=== PATIENT | female | born 1985 ===

== ENCOUNTER 2017-10-18 16:45 | Emergency (ER) | payer BC, OTHER ==
[2017-10-18 16:46] VITALS: BMI 30.9
[2017-10-18 17:08] VITALS: BP 110/59; PULSE 71; RESP 18; TEMP 97.9; O2SAT 100
--- NOTE | 2017-10-18 17:31 | ED PDOC ---
HPI: General Adult Time Seen by Provider: 10/18/17 17:16 Chief Complaint (Nursing): Upper Extremity Problem/Injury Chief Complaint (Provider): Right elbow and knee pain, fall History Per: Patient History/Exam Limitations: no limitations Onset/Duration Of Symptoms: Days (x2) Current Symptoms Are (Timing): Still Present Additional Complaint(s): 32 year old female presents to the emergency department complaining of pain to the right knee and right elbow s/p rip and fall yesterday. Patient states she misplaced her footing while getting out of a truck and fell, sustaining abrasions to the right knee and elbow. She reports taking Motrin with some improvement, last dose was around 12PM noon. Patient is able to bend right elbow and right knee. She complains of difficulty walking secondary to the pain. PMD: Dr. Purcell Past Medical History Reviewed: Historical Data, Nursing Documentation, Vital Signs Vital Signs: Last Vital Signs Temp 97.9 F 10/18/17 17:03 Pulse 71 10/18/17 17:03 Resp 18 10/18/17 17:03 BP 110/59 L 10/18/17 17:03 Pulse Ox 100 10/18/17 17:38 - Medical History PMH: Anxiety, Back Problems - Surgical History Surgical History: Appendectomy, - Family History Family History: States: No Known Family Hx - Living Arrangements Living Arrangements: With Family - Social History Current smoker - smoking cessation education provided: No Alcohol: None Drugs: Denies - Immunization History Hx Tetanus Toxoid Vaccination: No (not sure of last booster) - Home Medications Home Medications: Ambulatory Orders Medication Instructions Recorded ALPRAZolam [Xanax] 0.25 mg PO Q12 PRN #10 tab 06/15/17 Ibuprofen [Motrin Tab] 800 mg PO Q8 PRN #20 tab 10/18/17 - Allergies Allergies/Adverse Reactions: Allergies Allergy/AdvReac Type Severity Reaction Status Date / Time No Known Allergies Allergy Verified 06/25/15 11:14 Review of Systems ROS Statement: Except As Marked, All Systems Reviewed And Found Negative Musculoskeletal: Positive for: Other (right elbow and knee inuries) Neurological: Positive for: Other (no head injury or LOC) Physical Exam - Reviewed Nursing Documentation Reviewed: Yes Vital Signs Reviewed: Yes - Physical Exam Appears: Positive for: Well, Non-toxic, No Acute Distress Head Exam: Positive for: ATRAUMATIC, NORMAL INSPECTION, NORMOCEPHALIC Skin: Positive for: Normal Color. Negative for: Rash Eye Exam: Positive for: Normal appearance Neck: Positive for: Normal, Painless ROM. Negative for: Pain On Movement Of Neck Back: Positive for: Normal Inspection Extremity: Positive for: Other (Abrasions noted to right elbow and right knee, with full ROM of both elbow and knee. No bony deformities noted) Neurologic/Psych: Positive for: Alert, Oriented, Gait (steady) - Laboratory Results Urine POC: Negative - ECG O2 Sat by Pulse Oximetry: 100 (RA) Pulse Ox Interpretation: Normal - Other Rad Right elbow x-ray X-Ray: Interpreted by Me, Viewed By Me X-Ray Interpretation: no fx, no dis right knee x-ray X-Ray: Interpreted by Me, Viewed By Me X-Ray Interpretation: no fx, no dis Medical Decision Making Medical Decision Makin32 year old with knee and elbow injuries Time: 17:27 Plan: Tetanus booster Motrin 600 mg PO Tylenol 650 mg PO Urine X-rays of right elbow and right knee Patient is aware of x-ray results, all questions answered. Wounds cleansed with normal saline and Betadine, bacitracin and bandages applied. Knee immobilizer applied to right leg. Crutches declined. Prescription for Motrin given along with orthopedic referral. Scribe Attestation: Documented by Safia Corral, acting as a scribe for Mackenzie Isaacs PA-C Provider Scribe Attestation: All medical record entries made by the Scribe were at my direction and personally dictated by me. I have reviewed the chart and agree that the record accurately reflects my personal performance of the history, physical exam, medical decision making, and the department course for this patient. I have also personally directed, reviewed, and agree with the discharge instructions and disposition. Procedures - Splinting Location: right knee Pre-Made Type: knee immobilizer Pre-Proc Neuro Vasc Exam: normal Post-Proc Neuro Vasc Exam: normal Disposition - Clinical Impression Clinical Impression: Elbow sprain, Knee sprain, Abrasions of multiple sites, Requires a booster tetanus - Patient ED Disposition Is Patient to be Admitted: No Counseled Patient/Family Regarding: Studies Performed, Diagnosis, Need For Followup, Rx Given - Disposition Referrals: Gloria Spear MD [Staff Provider] - Disposition: Routine/Home Disposition Time: 18:56 Condition: STABLE Additional Instructions: Take prescription meds as directed as needed for pain. Ice and elevate affected areas. Wash wounds daily with soap and water and apply Neosporin once per day only. Follow-up with primary doctor or orthopedist for any persistent symptoms. Prescriptions: Ibuprofen [Motrin Tab] 800 mg PO Q8 PRN #20 tab PRN Reason: Pain, Moderate (4-7) Instructions: Knee Sprain (DC), Elbow Sprain (DC), Skin Abrasions, Diphtheria and Tetanus Toxoids, and Acellular Pertussis Vaccine Forms: [employer] ([place]), [facility] ED School/Work Excuse
[2017-10-18] MEDS ORDERED: Tdap Vaccine 0.5 ml Vial (10-64 yrs) IM ONE ×2 (17:34→17:46)
--- NOTE | 2017-10-19 07:50 | RAD ---
PROCEDURE: Right Knee Radiographs. HISTORY: trauma COMPARISON: Right knee radiographs 08/26/2016. FINDINGS: BONES: No acute fracture or destructive bony lesion identified. JOINTS: Normal. No osteoarthritis. JOINT EFFUSION: None. OTHER FINDINGS: None. IMPRESSION: No acute fracture or interval destructive bony lesion identified.
--- NOTE | 2017-10-19 07:52 | RAD ---
PROCEDURE: Radiographs of the right elbow. HISTORY: trauma COMPARISON: No prior. FINDINGS: BONES: No acute fracture or destructive bony lesion identified. JOINTS: Normal. No osteoarthritis. SOFT TISSUES: Normal. JOINT EFFUSION: None. OTHER FINDINGS: None. IMPRESSION: Unremarkable radiographs of the right elbow.
== END 2017-10-18 19:18 | disposition home or self-care (01) ==
LOC: H.ER 16:45
DX: S53.401A Unspecified sprain of right elbow, initial encounter (principal); S83.91XA Sprain of unspecified site of right knee, initial encounter; S50.311A Abrasion of right elbow, initial encounter; S80.211A Abrasion, right knee, initial encounter; W01.0XXA Fall on same level from slipping, tripping and stumbling without subsequent striking against object, initial encounter; Y92.89 Other specified places as the place of occurrence of the external cause; Z23 Encounter for immunization

== ENCOUNTER 2018-01-14 14:35 | Emergency (ER) | payer BC, OTHER ==
[2018-01-14 14:35] VITALS: BMI 30.9
[2018-01-14 15:14] VITALS: RESP 20; O2SAT 98
--- NOTE | 2018-01-14 15:19 | ED PDOC ---
HPI: Chest Pain <VictoriaSa alejandrau Kuldip - Last Filed: 01/14/18 16:51> Chief Complaint (Provider): chest pain History Per: Patient History/Exam Limitations: no limitations Onset/Duration Of Symptoms: Days Current Symptoms Are (Timing): Still Present Pain Scale Rating Of: 6 Quality: Pressure Associated Symptoms: denies: Nausea, Dyspnea, Diaphoresis, Syncope Additional History Per: Patient <Katia Singh - Last Filed: 01/14/18 17:02> Time Seen by Provider: 01/14/18 15:08 Chief Complaint (Nursing): Chest Pain Additional Complaint(s): 32 y/o F with PMHx of Anxiety presents complaining of intermittent episodes of chest pain since May/2017. Patient states she has had an " On and Off" middle localized chest pain for months, but has been more constant since January [id number]. She describes the pain as pressure sensation, no radiating, 6/10 in intensity, aggravating with ambulation, temporary relieved with Motrin 200 mg PO (which she took this morning once), reproducible with self-touch, and denies associated symptoms. Reports that the chest pain feels like her anxiety chest pain. Denies SOB, N/V, heartburn sensation, diaphoresis, palpitations, or other complains. Denies recent travel. PMD: Dr. Jack Bullock PMHx: Anxiety Allergies: NKDA Shx: 2 C-Seccion Social: denies smoking, etoh or illicit drugs (Katia Singh) Supervising Attending Note - Supervising Attending Note The Documented history was done by the: Physician Director Education The documented physical exam was done by the: Physician Director Education The documented procedures were done by the: Physician Director Education - Attestation: I have personally seen and examined this patient.: Yes I have fully participated in the care of the patient.: Yes I have reviewed all pertinent clinical information: Yes <VictoriaYuliana Kuldip - Last Filed: 01/14/18 16:51> Past Medical History <VictoriaYuliana Kuldip - Last Filed: 01/14/18 16:51> - Medical History PMH: Anxiety, Back Problems Denies: Chronic Kidney Disease - Surgical History Surgical History: Appendectomy, - Family History Family History: States: Unknown Family Hx - Immunization History Hx Tetanus Toxoid Vaccination: No (not sure of last booster) Hx Influenza Vaccination: No Hx Pneumococcal Vaccination: No <Katia Singh - Last Filed: 01/14/18 17:02> Vital Signs: Last Vital Signs Temp 98.7 F 01/14/18 14:46 Pulse 70 01/14/18 15:40 Resp 20 01/14/18 14:46 BP 117/66 01/14/18 14:46 Pulse Ox 98 01/14/18 16:32 - Home Medications Home Medications: Ambulatory Orders Medication Instructions Recorded ALPRAZolam [Xanax] 0.25 mg PO Q12 PRN #10 tab 06/15/17 Ibuprofen [Motrin Tab] 800 mg PO Q8 PRN #20 tab 10/18/17 - Allergies Allergies/Adverse Reactions: Allergies Allergy/AdvReac Type Severity Reaction Status Date / Time No Known Allergies Allergy Verified 06/25/15 11:14 KEY Risk Score for UA/NSTEMI - KEY Risk Score Age > 64: NO 3 or more CAD Risk Factors: NO Known CAD (Stenosis greater than 50%): NO Aspirin use in past 7 days: NO Severe Angina: NO EKG ST changes greater than 0.5mm: NO KEY Score: 0 Risk %: 5% <Katia Singh - Last Filed: 01/14/18 17:02> Curb-65 Severity Score - CURB-65 Severity Score Confusion: No Bun >19mg/dl (>7mmol/L): No Respiratory Rate greater than/equal to 30: No Systolic BP <90 or Diastolic BP less than/equal 60mmHg: No Age >64: No Curb-65 Score: 0 Percentage 30-day mortality: 0.6% <Katia Singh - Last Filed: 01/14/18 17:02> Wells Criteria for PE - Wells Criteria for Pulmonary Embolism Clinical Signs and Symptoms of DVT: No P.E is #1 Diagnosis, or Equally Likely: No Heart Rate >100: No Immobilization at least 3 days;Surgery previous 4 weeks: No Previous, objectively diagnosed PE or DVT: No Hemoptysis: No Malignancy w/treatment within 6 months, or palliative: No Total Score: 0 <Katia Singh - Last Filed: 01/14/18 17:02> Review of Systems ROS Statement: Except As Marked, All Systems Reviewed And Found Negative (as per HPi) <Katia Singh - Last Filed: 01/14/18 17:02> Physical Exam - Reviewed Nursing Documentation Reviewed: Yes Vital Signs Reviewed: Yes - Physical Exam Appears: Positive for: Non-toxic, No Acute Distress Head Exam: Positive for: ATRAUMATIC, NORMOCEPHALIC Skin: Positive for: Normal Color, Warm, Dry. Negative for: Diaphoresis, Rash, Jaundice, Cyanosis Eye Exam: Positive for: Normal appearance, PERRL. Negative for: Nystagmus, Conjunctival injection ENT: Positive for: Normal ENT Inspection, Pharynx Is (normal), TM Is/Are ( intact and normal). Negative for: Nasal Congestion, Pharyngeal Erythema, Tonsillar Exudate Neck: Positive for: Normal, Supple Cardiovascular/Chest: Positive for: Regular Rate, Rhythm, Other (sternal area tender to palpation, pain reproducible with palpation). Negative for: Chest Non Tender, Edema, Gallop, JVD, Murmur, Bradycardia, Tachycardia, Friction Rub, Irregularly Irregular Respiratory: Positive for: Normal Breath Sounds. Negative for: Decreased Breath Sounds, Accessory Muscle Use, Crackles, Rales, Rhonchi, Stridor, Wheezing , Respiratory Distress, Plerual Rub Gastrointestinal/Abdominal: Positive for: Normal Exam, Bowel Sounds, Soft. Negative for: Tenderness, Distended, Guarding Back: Positive for: Normal Inspection Extremity: Negative for: Pedal Edema, Calf Tenderness Neurologic/Psych: Positive for: Alert, Oriented <Katia Singh - Last Filed: 01/14/18 17:02> - Laboratory Results Result Diagrams: 01/14/18 15:50 01/14/18 15:50 <Yuliana Victoria - Last Filed: 01/14/18 16:51> - Laboratory Results Result Diagrams: 01/14/18 15:50 01/14/18 15:50 - ECG O2 Sat by Pulse Oximetry: 98 <Katia Singh - Last Filed: 01/14/18 17:02> Medical Decision Making <Yuliaan Victoria - Last Filed: 01/14/18 16:51> <Katia Singh - Last Filed: 01/14/18 17:02> Medical Decision Making: Chest pain -most likely musculoskeletal etiology vs anxiety -reproducible with palpation -no risk factors for CAD -EKG showed NSR, no evidence of acute St-T wave changes -CBC, BMP, troponin I x 1 -Ibuprofen 400 mg Po once -re-evaluate -case discussed with Dr. Victoria Re-evaluation -chest pain improved to 2/10 after Ibuprofen PO -CBc, BMP WNL -Troponin I x 1 negative -patient is feeling better, and stable to be discharge home with outpatient f/u with PMD -case discussed with Dr. Victoria (Katia Singh) Disposition <Yuliana Victoria - Last Filed: 01/14/18 16:51> Discussed With : Yuilana Victoria - Disposition Disposition: Routine/Home Disposition Time: 17:00 <Katia Singh - Last Filed: 01/14/18 17:02> - Clinical Impression Clinical Impression: Atypical chest pain - Disposition Condition: GOOD Additional Instructions: F/u as outpatient with PMD ER precautions given Instructions: Chest Pain That Is Not Caused by the Heart (DC) Forms: [employer] (Guyanese)
[2018-01-14 15:59] LABS: BASO # 0.1 K/uL (0.0-0.2); BASO % 0.9 % (0.0-2.0); EOS # 0.2 K/uL (0.0-0.7); EOS % 1.8 % (0.0-4.0); HEMOGLOBIN 12.5 g/dL (12.0-16.0); LYMPH # 2.8 K/uL (1.0-4.3); LYMPH % 27.3 % (20.0-40.0); MEAN CELL VOLUME 92.8 fl (81.0-99.0); MEAN CORPUSCULAR HEMOGLOBIN 30.9 pg (27.0-31.0); MEAN CORPUSCULAR HGB CONC 33.3 g/dL (33.0-37.0); MEAN PLATELET VOLUME 8.7 fl (7.2-11.7); MONO # 0.8 K/uL (0.0-0.8); MONO % 7.5 % (0.0-10.0); NEUT # 6.3 K/uL (1.8-7.0); NEUT % 62.5 % (50.0-75.0); RBC 4.04 Mil/uL (3.80-5.20); RED CELL DISTRIBUTION WIDTH 14.6 % (11.5-14.5); WHITE BLOOD COUNT 10.1 K/uL (4.8-10.8)
[2018-01-14 16:04] LABS: BLOOD UREA NITROGEN 14 mg/dl (7-17); CALCIUM 8.9 mg/dL (8.4-10.2); GFR AFRICAN-AMERICAN > 60; GFR NON-AFRICAN AMERICAN > 60
[2018-01-14 17:51] VITALS: BP 120/80; PULSE 72; TEMP 98
== END 2018-01-14 17:50 | disposition home or self-care (01) ==
LOC: H.ER 14:35
DX: F41.9 Anxiety disorder, unspecified (principal); R07.89 Other chest pain